=== PATIENT | female | born 1960 | race Caucasian/White ===

== ENCOUNTER 2019-11-19 15:29 | Emergency (ER) | payer OTHER ==
[~2019-11-19] VITALS: Ht 160 cm; Wt 56.7 kg
[2019-11-19 19:45] VITALS: BP 140/88
== END 2019-11-19 19:50 | disposition home or self-care (01) ==
LOC: ER 15:29
DX: S53.402A Unspecified sprain of left elbow, initial encounter (principal); S73.102A Unspecified sprain of left hip, initial encounter; S83.92XA Sprain of unspecified site of left knee, initial encounter; W01.0XXA Fall on same level from slipping, tripping and stumbling without subsequent striking against object, initial encounter; Y93.89 Activity, other specified; Y92.89 Other specified places as the place of occurrence of the external cause; Y99.8 Other external cause status